=== PATIENT | male | born 1995 | race African-American/Black ===

== ENCOUNTER 2016-05-27 06:01 | Emergency (ER) ==
[2016-05-27] MEDS ORDERED: NS 1,000 ML IV ONE (06:23)
[2016-05-27] MEDS ORDERED: ALBUTEROL NEB INH ONE (06:24)
[2016-05-27] MEDS ORDERED: ZOFRAN IV ONE (06:24)
[2016-05-27] MEDS ORDERED: ATROVENT NEB INH ONE (06:24)
[2016-05-27] MEDS ORDERED: SOLU-MEDROL IV ONE (06:24)
[2016-05-27] MEDS ORDERED: DILAUDID IV ONE (06:24)
[2016-05-27 06:47] LABS: ALLEN TEST YES; BE -0.1 mmoll (-3.0-3.0); BLOOD TYPE ARTERIAL; DRAW SITE R BRACHIAL; METHB 2.4 % (0.0-1.5); PCO2(98.6) 47 mmHg (35-45); PO2(98.6) 95 mmHg (60-100); SAMPLE BLOOD; SAO2 99.4 % (95.0-100.0); THB 11.5 g/dL (11.5-17.4); pH(98.6) 7.35 (7.35-7.45)
[2016-05-27 06:48] LABS: MODALITY CANNULA
--- NOTE | 2016-05-27 07:01 | PROVIDER DOCUMENTATION ---
HPI-General Adult - General Source: patient - History of Present Illness -Gen Adult Nature of Presenting Problems: Reports h/o asthma and sickle cell disease, and both of them flare up. Takes [employer] 7.5 at home, but she r/o it. Reports LLE pain w/o swelling. Most recent blood transfusion was 5-6 years ago. Pt uses Albuterol INH at home for hsi asthma. Reports SOB and wheezing. Denies F/C/N/V, but reports SOB. Location of Pain/Injury: reports: lower extremity Pain Radiation: reports: no radiation Quality of Pain: reports: aching, sharp Severity: reports: moderate Onset/Duration: reports: last night Timing: reports: still present Context/Activities at Onset: reports: none Modifying Factors: improves with: rest. worse with: movement Associated Symptoms: reports: cough, fatigue, malaise, trouble walking. denies : chest pain, diarrhea, dizziness, fever/chills, nausea, rash, seizure, vomiting Similar Symptoms Previously?: Yes Recently seen or treated by another doctor?: No <Lisa Bradshaw - Last Filed: 05/27/16 06:56> <Alfred Villeda - Last Filed: 05/27/16 09:11> - General Chief Complaint: Asthma Attack Stated Complaint: ASTHMA/LFT LEG PAIN Time Seen by Provider: 05/27/16 06:05 Allergies/Adverse Reactions: Patient Allergies Allergy/AdvReac Type Severity Reaction Status Date / Time No Known Allergies Allergy Verified 05/27/16 06:07 Home Medications: Home Medication List Medication Instructions Recorded Confirmed Last Taken Type Hydrocodone/APAP 7.5 mg/325 mg 1 each PO Q8H PRN PRN #10 tablet 05/27/16 Unknown Rx [[employer]-7.5] Levofloxacin [Levaquin] 750 mg PO DAILY #10 tablet 05/27/16 Unknown Rx Methylprednisolone [Medrol Dosepak] 4 mg PO DIRECTED #1 package 05/27/16 Unknown Rx Review of Systems - Adult - REVIEW OF SYSTEMS - ADULT Constitutional: reports: no symptoms reported, see HPI, john. denies: chills , fever Eyes: reports: no symptoms reported Ears, Nose, Mouth & Throat: reports: no symptoms reported Cardiovascular: reports: no symptoms reported Respiratory: reports: see HPI, cough, shortness of breath, wheezing Gastrointestinal: reports: no symptoms reported Genitourinary: reports: no symptoms reported Musculoskeletal: reports: see HPI, other (LLE pain) Integumentary: reports: no symptoms reported Neurological: reports: no symptoms reported Psychiatric: reports: no symptoms reported Endocrine: reports: no symptoms reported All Other Systems: Reviewed and Negative <Christal Bradshawtana X - Last Filed: 05/27/16 06:56> Past History - Adult - PAST MEDICAL HISTORY-ADULT Review of Records: reports: Old Records Reviewed, Nursing Assessment Review, Medications Reviewed, Social history reviewed & non-contributory. <Christal Bradshawtana X - Last Filed: 05/27/16 06:56> Physical Exam-General - PHYSICAL EXAM-ADULT Initial Vital Signs Reviewed: Yes - CONSTITUTIONAL General Appearance: alert, mild distress - EYES Eyes: PERRL/EOMI, pink conjunctivae - HEAD, EARS, NOSE, MOUTH & THROAT HENMT: normocephalic/atraumatic, moist mucous membranes - NECK Neck: non-tender, full range of motion - RESPIRATORY Respiratory: chest non-tender, no respiratory distress, no accessory muscle use , wheezing. negative: respiratory distress, decreased breath sounds, crackles, rales, rhonchi, dull on percussion, prolonged expiration, pain on inspiration, decreased rate, increased rate - CARDIOVASCULAR Cardiovascular: normal peripheral pulses, regular rate, rhythm - GASTROINTESTINAL (ABDOMEN) Abdominal Exam: normal bowel sounds, non tender, soft - MUSCULOSKELETAL Back Exam: normal inspection, no CVA tenderness, no vertebral tenderness Extremity: normal range of motion, non-tender, normal gait, normal inspection, no pedal edema, no calf tenderness, normal capillary refill, other (LLE exam WNL ). negative: deformity, swelling, tenderness - NEUROLOGIC Neurologic: grossly normal, no motor/sensory deficits, abnormal cerebellar tests - PSYCHIATRIC Psych/Mental Status: normal mood/affect, normal thought content, normal thought process, oriented x 3 <Christal Bradshawtana X - Last Filed: 05/27/16 06:56> Progress - PLAN OF CARE/RESULTS Progress/Plan/Lab Results: Vital Signs Temp Pulse Resp BP Pulse Ox 05/27/16 06:55 93 H 18 05/27/16 06:44 87 22 143/69 99 05/27/16 06:04 97.5 F L 95 H 20 116/73 93 L No Known Allergies Allergy (Verified 05/27/16 06:07) No Home Medications 05/27/16 I&O 05/26/16 05/27/16 05/28/16 06:59 06:59 06:59 Output Total 100 Balance -100 Laboratory 05/27/16 05/27/16 05/27/16 07:10 06:40 06:25 WBC RBC Hgb Hct MCV MCH MCHC RDW Std Deviation Plt Count MPV Immature Gran % (Auto) Neut % (Auto) Lymph % (Auto) [place] % (Auto) Eos % (Auto) Baso % (Auto) Immature Gran # (Auto) Neut # (Auto) Lymph # (Auto) [place] # (Auto) Eos # (Auto) Baso # (Auto) Percent Retic Retic Hgb Equivalent D-Dimer 1.16 H Specimen Type ARTERIAL Sample Site R BRACHIAL pH 7.35 pCO2 47 H pO2 95 HCO3 24.7 Base Excess -0.1 Oxyhemoglobin 92.2 L ABG O2 Sat (Calculated) 15.0 ABG O2 Saturation 99.4 ABG Carboxyhemoglobin 4.70 H ABG Methemoglobin 2.4 H Edmundo Test YES A-a O2 Difference 46.0 Total Hemoglobin 11.5 Lactate 0.40 L Liter Flow 2.0 Blood Gas Modality CANNULA FiO2 % 28.0 Sodium Potassium Chloride Carbon Dioxide Anion Gap BUN Creatinine Estimated GFR/1.73 m2 BUN/Creatinine Ratio Glucose Calculated Osmolality Calcium Total Bilirubin AST ALT Alkaline Phosphatase Total Protein Albumin Globulin Albumin/Globulin Ratio Urine Source CLEAN CATCH Urine Color YELLOW Urine Turbidity CLEAR Urine pH 6.0 Ur Specific [place] 1.011 Urine Protein NEGATIVE Ur Glucose (Stick) NEGATIVE Ur Ketones (Stick) NEGATIVE Urine Blood NEGATIVE Urine Nitrite NEGATIVE Urine Bilirubin NEGATIVE Urobilinogen Dipstick NORMAL Urine Leukocytes MODERATE A Urine WBC (Auto) 10-20 A Urine RBC (Auto) <10 U Epithel Cells (Auto) <10 Urine Bacteria (Auto) NEGATIVE 05/27/16 05/27/16 06:25 06:25 WBC 11.42 H RBC 3.91 L Hgb 12.3 L Hct 33.1 L MCV 84.7 MCH 31.5 H MCHC 37.2 H RDW Std Deviation 13.9 Plt Count 418 H MPV 10.4 Immature Gran % (Auto) 0.4 Neut % (Auto) 40.2 L Lymph % (Auto) 39.4 Kent % (Auto) 9.5 H Eos % (Auto) 8.0 Baso % (Auto) 2.5 H Immature Gran # (Auto) 0.04 Neut # (Auto) 4.60 Lymph # (Auto) 4.50 H Kent # (Auto) 1.08 H Eos # (Auto) 0.91 H Baso # (Auto) 0.29 H Percent Retic 3.44 H Retic Hgb Equivalent 29.4 D-Dimer Specimen Type Sample Site pH pCO2 pO2 HCO3 Base Excess Oxyhemoglobin ABG O2 Sat (Calculated) ABG O2 Saturation ABG Carboxyhemoglobin ABG Methemoglobin Edmundo Test A-a O2 Difference Total Hemoglobin Lactate Liter Flow Blood Gas Modality FiO2 % Sodium 140 Potassium 4.2 Chloride 104 Carbon Dioxide 23 L Anion Gap 13 BUN 7 L Creatinine 0.9 Estimated GFR/1.73 m2 > 60 BUN/Creatinine Ratio 8 Glucose 82 Calculated Osmolality 276 Calcium 9.1 Total Bilirubin 1.38 H AST 23 ALT 14 Alkaline Phosphatase 71 Total Protein 7.0 Albumin 4.2 Globulin 2.8 Albumin/Globulin Ratio 1.5 Urine Source Urine Color Urine Turbidity Urine pH Ur Specific [place] Urine Protein Ur Glucose (Stick) Ur Ketones (Stick) Urine Blood Urine Nitrite Urine Bilirubin Urobilinogen Dipstick Urine Leukocytes Urine WBC (Auto) Urine RBC (Auto) U Epithel Cells (Auto) Urine Bacteria (Auto) Orders Category Date Time Status Saline Loc NOW Care 05/27/16 06:24 Active CHEST-2 VIEWS [RAD] Stat Exams 05/27/16 06:12 Completed ABG [RESP] Routine Lab 05/27/16 06:40 Completed CBC WITH DIFF [HEME] Stat Lab 05/27/16 06:25 Completed COMPREHENSIVE METABOLIC PANEL [CHEM] Stat Lab 05/27/16 06:25 Completed D-DIMER [CHEM] Stat Lab 05/27/16 06:25 Completed RETIC COUNT [HEME] Stat Lab 05/27/16 06:25 Completed UA NIMS W/REFLEX CULT [URINALYSIS] Stat Lab 05/27/16 07:10 Completed URINE CULTURE [RM] Routine Lab 05/27/16 08:18 Received 0.9% Sodium Chloride Inj [Ns] 1,000 ml Med 05/27/16 06:23 Discontinued IV 999 mls/hr Albuterol [Albuterol Neb] Med 05/27/16 06:24 Discontinued 7.5 mg INH NOW ONE Azithromycin [Zithromax] Med 05/27/16 09:08 Discontinued 1,000 mg PO NOW ONE CefTRIAXONE 1 GM/NS [Rocephin 1 gm/Ns] 50 ml Med 05/27/16 08:30 Discontinued IV NOW Hydromorphone [Dilaudid] Med 05/27/16 06:24 Discontinued 1 mg IV NOW ONE Ipratropium [place] Neb [Atrovent Neb] Med 05/27/16 06:24 Discontinued 0.5 mg INH NOW ONE Methylprednisolone Sod Succ [Solu-Medrol] Med 05/27/16 06:24 Discontinued 125 mg IV NOW ONE Ondansetron [Zofran] Med 05/27/16 06:24 Discontinued 4 mg IV NOW ONE Oxycodone/APAP 10 mg/325 mg [Percocet-10] Med 05/27/16 08:45 Discontinued 1 each PO NOW ONE Aerosol Treatments Routine Oth 05/27/16 06:25 Completed Aerosol Treatments Stat Oth 05/27/16 06:25 Completed US [Venous U/S Bilateral Legs] [CV] Stat Ther 05/27/16 07:53 Ordered Patient will be d/c home f/u pcp, rx given, pt was clinically stable. pt understood results and instructions - XRAY 1 XRAY Study: Chest Impression: Normal XRAY Interpretation: Negative - ULTRASOUND (By Radiology) 1 US Study: Lower Ext Impression: Normal US Results: no dvt <Alfred Villeda - Last Filed: 05/27/16 09:11> Departure <Lisa Bradshaw X - Last Filed: 05/27/16 06:56> - Departure Time of Disposition Order: 09:09 Certified Medical Emergency: Emergent <Alfred Villeda - Last Filed: 05/27/16 09:11> - Departure DIAGNOSIS: Sickle-cell disease with pain, Asthma exacerbation UTI (urinary tract infection) Qualifiers: Urinary tract infection type: acute cystitis Hematuria presence: without hematuria Qualified Code(s): N30.00 - Acute cystitis without hematuria Disposition: HOME 01 Condition: Stable Additional Instructions: ED Follow Up Instructions: You have been treated by a care provider in the Emergency Department. These instructions are being provided to you so you can have an understanding of how to care for yourself upon discharge. Upon discharge from the Emergency Department, you are responsible for making arrangements for follow-up care by a physician of your choice. Take all prescribed medications as directed. Return to the Emergency Department immediately for any new or worsening symptoms. You may call the Physician Referral phone number at [phone] to obtain a list of Physicians who are taking new patients. Referrals: Oscar Ca MD [Primary Care Provider] - Call for Appoint. 1-2days Instructions: Urinary Tract Infection, Hkuk-gb-Fode, Sickle Cell Anemia, Adult , [id number], Asthma, Adult, Hwka-ga-Ilre Attestation - Scribe Verification/Attestation Scribe:: Alfred Villeda Acting as Scribe for:: Lisa Bradshaw Scribe documention review:: This chart was documented by a scribe and accurately reflects the service the provider performed and the decisions made by the provider. <Alfred Villeda - Last Filed: 05/27/16 09:11> Physician Attestation - Physician Attestation I, the provider, attest to the following statement:: Lisa Bradshaw Physician documentation Attestation:: This documentation recorded by the scribe accurately reflects the service I personally performed and the decisions made by me. <Alfred Villeda - Last Filed: 05/27/16 09:11>
[2016-05-27 07:09] LABS: AGAP 13; ALBUMIN 4.2 g/dL (3.5-5.0); ALKALINE PHOSPHATASE 71 U/L (32-122); BUN 7 mg/dL (8-22); CALCIUM 9.1 mg/dL (8.8-10.2); CHLORIDE 104 mmol/L (98-107); COSMO 276; GOT 23 U/L (10-34); GPT 14 U/L (10-44); POTASSIUM 4.2 mmol/L (3.5-5.1); SODIUM 140 mmol/L (136-145); TCO2 23 mmol/L (25-35); TOTAL BILIRUBIN 1.38 mg/dL (0.20-1.00)
[2016-05-27 07:38] LABS: BASO% 2.5 % (0.0-0.8); EOS# 0.91 X1000 (0.0-0.7); HEMATOCRIT 33.1 % (42.0-52.0); HEMOGLOBIN 12.3 g/dL (14.0-18.0); IMM GRAN# 0.04 X1000 (0.0-0.04); IMM GRAN% 0.4 % (0.0-0.5); LYMPH% 39.4 % (20.5-51.1); MANUAL DIFF NEEDED? NO; MCH 31.5 PG (27-31); MCHC 37.2 g/dL (33-37); MCV 84.7 FL (81-99); MONO# 1.08 X1000 (0.11-0.59); MONO% 9.5 % (1.7-9.3); MPV 10.4 FL (7.4-10.4); NEUT% 40.2 % (42.2-75.2); PLT 418 X1000 (130-400); RBC 3.91 XMIL (4.7-6.1)
[2016-05-27 07:46] LABS: RETIC% 3.44 % (0.8-2.1); RETIC-HE 29.4 PG (28.2-36.6)
[2016-05-27 07:47] LABS: URINE MICRO REVIEW NEEDED? NO; URINE SOURCE CLEAN CATCH
[2016-05-27 07:58] LABS: BILIRUBIN URINE NEGATIVE (NEGATIVE); BLOOD URINE NEGATIVE (NEGATIVE); COLOR YELLOW; GLUCOSE URINE NEGATIVE (NEGATIVE); LEUKOCYTES URINE MODERATE (NEGATIVE); NITRITE URINE NEGATIVE (NEGATIVE); PROTEIN URINE NEGATIVE (NEGATIVE); SP GRAVITY URINE 1.011; TURBIDITY URINE CLEAR (CLEAR); UROBILINOGEN URINE NORMAL (NORMAL)
[2016-05-27 08:00] LABS: UR EPITHELIAL CELLS <10 /HPF (<10); URINE BACTERIA NEGATIVE /HPF; URINE CULTURE NEEDED? YES; URINE RBC <10 /HPF (<10)
--- NOTE | 2016-05-27 08:12 | Diag Imaging Result Document ---
PROCEDURE NAME: CHEST-2 VIEWS - 05/27/2016 TWO VIEWS OF THE CHEST: Normal chest.
[2016-05-27] MEDS ORDERED: ROCEPHIN 1 GM/NS 50 ML IV ONE (08:30)
[2016-05-27] MEDS ORDERED: PERCOCET-10 PO ONE (08:45)
[2016-05-27] MEDS ORDERED: ZITHROMAX PO ONE (09:08)
[2016-05-27 09:33] VITALS: BP 131/87
--- NOTE | 2016-05-28 11:23 | Extremity Venous Study ---
PROCEDURE NAME: Venous U/S Bilateral Legs - 05/27/2016 REQUESTING PHYSICIAN: Dr. Bradshaw in the emergency department. DIELECTRIC TESTING MACHINE OPERATOR: Rhett. TEST: Lower extremity venous study. INDICATIONS: Shortness of breath and elevated D-dimer. PROCEDURE: Bilateral lower extremity venous duplex and color flow imaging. EQUIPMENT: [employer] E9 ultrasound System with a 9 LD transducer. FINDINGS: Imaging in the bilateral lower extremity venous systems were obtained in both sagittal and transverse planes. Doppler was used to evaluate veins for spontaneity, phasicity, respiratory excursion, and digital augmentation. RESULTS: Normal venous compression, normal venous flow. No obvious superficial or deep venous thrombosis noted. INTERPRETATION: No obvious superficial or deep venous thrombosis noted to bilateral lower extremities. There is normal venous flow. Normal venous compression.
== END 2016-05-27 09:33 | disposition home or self-care (01) ==
LOC: ED 06:01
DX: N30.00 Acute cystitis without hematuria (principal); D57.00 Hb-SS disease with crisis, unspecified; J45.901 Unspecified asthma with (acute) exacerbation; M79.605 Pain in left leg; R06.02 Shortness of breath; R06.2 Wheezing; R05 Cough; R53.83 Other fatigue; R53.81 Other malaise; R26.2 Difficulty in walking, not elsewhere classified
CPT/HCPCS: 71020; 80053; 81001; 82805; 85025; 85045; 85379; 87088; 93970; 94640; J0696; J1170; J2405; J2930; J7030